=== PATIENT | female | born 1975 | race American Indian/Alaskan Native ===

== ENCOUNTER 2021-07-11 02:51 | Emergency (ER) | payer BC ==
[2021-07-11] MEDS ORDERED: FAMOTIDINE 20 MG/2 ML INJ IV ONE ×2 (02:58→03:41)
[2021-07-11] MEDS ORDERED: methylPREDNISolone Sod Succinate 125 MG/2 ML INJ ONE (02:58)
[2021-07-11] MEDS ORDERED: diphenhydrAMINE 50 MG/ML VIAL ONE (02:58)
--- NOTE | 2021-07-11 03:06 | Emergency Department Report ---
ED Allergic Reaction HPI - General Stated complaint: ALLERGIC REACTION Time Seen by Provider: 07/11/21 02:51 Source: patient Mode of arrival: Ambulatory Limitations: No Limitations - History of Present Illness Initial Comments: Patient is a 45-year-old female that presents emergency room for allergic reaction. Patient states her symptoms are all in her skin. Patient denies di fficulty breathing. Patient denies difficulty swallowing. Patient denies shortness of breath. Patient denies chest pain. Patient denies fever and chills. Patient denies nausea and vomiting. Patient states he is not allergic anything. Patient states she was out with some friends at a [employer] and began to itch. Patient states she does not recall taking anything new in. Patient states no change in her soaps. Patient denies pain. Patient states this is very itchy. Patient denies recent travel. Patient denies recent international travel. Patient denies exposure to the novel coronavirus. Patient denies sick contacts. Patient denies fever and chills. Patient denies cough. Patient denies diarrhea. Patient denies coming in contact with anybody with symptoms of the novel coronavirus. MD Complaint: allergic reaction, hives -: Sudden Symptoms: rash, itching, facial swelling. denies: lip swelling, difficulty swallowing, difficulty breathing, orolingual swelling, hoarseness, syncopy, dizziness, nausea, vomiting, other, abdominal pain Severity: severe Treatment Prior to Arrival: none Previous Allergy History: none - Related Data Previous Rx's Medication Instructions Recorded Last Taken Type methylPREDNISolone [Medrol 4MG 4 mg PO DAILY 6 Days #1 tab.ds.pk 07/11/21 Unknown Rx DOSEPAK (21 tabs)] ED Review of Systems ROS: Stated complaint: ALLERGIC REACTION Other details as noted in HPI Constitutional: denies: chills, fever Eyes: denies: eye pain, eye discharge, vision change ENT: denies: ear pain, throat pain Respiratory: denies: cough, shortness of breath, wheezing Cardiovascular: denies: chest pain, palpitations Endocrine: no symptoms reported Gastrointestinal: denies: abdominal pain, nausea, diarrhea Genitourinary: denies: urgency, dysuria, discharge Musculoskeletal: denies: back pain, joint swelling, arthralgia Skin: as per HPI, rash. denies: lesions Neurological: denies: headache, weakness, paresthesias Psychiatric: denies: anxiety, depression Hematological/Lymphatic: denies: easy bleeding, easy bruising ED Past Medical Hx - Past Medical History Previous Medical History?: No - Surgical History Past Surgical History?: No - Family History Family history: no significant - Social History Smoking Status: Never Smoker Substance Use Type: Alcohol - Medications Home Medications: Home Medications Medication Instructions Recorded Confirmed Last Taken Type methylPREDNISolone [Medrol 4MG 4 mg PO DAILY 6 Days #1 tab.ds.pk 07/11/21 Unknown Rx DOSEPAK (21 tabs)] ED Physical Exam - General Limitations: No Limitations General appearance: alert, in no apparent distress - Head Head exam: Present: atraumatic, normocephalic - Eye Eye exam: Present: normal appearance - ENT ENT exam: Present: mucous membranes moist - Neck Neck exam: Present: normal inspection - Respiratory Respiratory exam: Present: normal lung sounds bilaterally. Absent: respiratory distress - Cardiovascular Cardiovascular Exam: Present: regular rate, normal rhythm. Absent: systolic murmur, diastolic murmur, rubs, gallop - GI/Abdominal GI/Abdominal exam: Present: soft, normal bowel sounds - Extremities Exam Extremities exam: Present: normal inspection - Back Exam Back exam: Present: normal inspection - Neurological Exam Neurological exam: Present: alert, oriented X3 - Psychiatric Psychiatric exam: Present: normal affect, normal mood - Skin Skin exam: Present: warm, dry, normal color, rash, erythema, urticaria ED Course Vital Signs 07/11/21 03:40 O2 Sat by Pulse 98 Oximetry - Reevaluation(s) Reevaluation #1: Patient already given 125 Solu-Medrol, Benadryl and Pepcid. Patient had an IV started by the nurse. Patient will be monitored. 07/11/21 03:06 Reevaluation #2: Patient received Solu-Medrol, Pepcid and Benadryl. Patient states her allergic reaction is improved. Patient states she is feeling better. Patient states however she is now nauseous. Patient will be given Zofran. 07/11/21 03:40 Reevaluation #3: Patient states all of her symptoms have resolved. Patient denies nausea vomiting. Patient denies itching. Patient is stable for discharge. I discussed all results and clinical findings with patient. I discussed plan of care with patient. Patient agrees with plan of care. Patient is stable for discharge. Patient will be discharged home. Patient given discharge instructions. Patient voiced understanding of discharge instructions. 07/11/21 04:05 ED Medical Decision Making - Medical Decision Making Patient is a 45-year-old female who presents emergency room for itching of her skin, rash and urticaria. Patient is on sure what caused the allergic reaction. Patient given Solu-Medrol, Pepcid and Benadryl during initial evaluation. Patient responded well to treatment. Patient then developed nausea vomiting and the patient was given Zofran. Patient's nausea vomiting resolved. Patient discharged essentially asymptomatic. Patient responded well to treatment. Patient not require any further emergency medical service. Patient not require inpatient service. Patient monitored for adequate amount of time back to baseline. Patient will be discharged home with a steroid pack. I discussed all results and clinical findings with patient. I discussed plan of care with patient. Patient agrees with plan of care. Patient is stable for discharge. Patient will be discharged home. Patient given discharge instructions. Patient voiced understanding of discharge instructions. - Differential Diagnosis Allergic reaction, rash, urticaria, Critical care attestation.: If time is entered above; I have spent that time in minutes in the direct care of this critically ill patient, excluding procedure time. ED Disposition Clinical Impression: Urticaria, Rash Allergic reaction Qualifiers: Encounter type: initial encounter Qualified Code(s): T78.40XA - Allergy, unspecified, initial encounter Disposition: 01 HOME / SELF CARE / HOMELESS Is pt being admited?: No Does the pt Need Aspirin: No Condition: Stable Instructions: Rash, Adult, Allergies, Adult, [id number] Additional Instructions: Patient to follow-up with primary care in 2 to 3 days. 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 Patient to rest. Patient to increase water. Patient to take [id number] antihistamine or Benadryl as needed. Patient to take meds as directed. Patient to return to the ER if condition worsens, changes or new symptoms arise. Prescriptions: methylPREDNISolone [Medrol 4MG DOSEPAK (21 tabs)] 4 mg PO DAILY 6 Days #1 tab.ds.pk Time of Disposition: 04:09
[2021-07-11] MEDS ORDERED: ONDANSETRON 4 MG/2 ML INJ ONE (03:30)
[2021-07-11] MEDS ORDERED: diphenhydrAMINE 50 MG/ML VIAL IV ONE (03:41)
[2021-07-11] MEDS ORDERED: methylPREDNISolone Sod Succinate 125 MG/2 ML INJ IV ONE (03:41)
[2021-07-11] MEDS ORDERED: ONDANSETRON 4 MG/2 ML INJ IV ONE (03:41)
[2021-07-11 05:20] VITALS: BP 98/67
== END 2021-07-11 05:20 | disposition home or self-care (01) ==
LOC: EDBD → ED 02:51
DX: T78.40XA Allergy, unspecified, initial encounter (principal); L50.9 Urticaria, unspecified; Z72.89 Other problems related to lifestyle; Z79.899 Other long term (current) drug therapy; X58.XXXA Exposure to other specified factors, initial encounter
CPT/HCPCS: 96374; 96375; 99282; J1200; J2405; J2930